=== PATIENT | female | born 1970 | race Caucasian/White ===

== ENCOUNTER 2017-03-01 05:07 | Inpatient (IN) ==
[2017-02-27 16:05] LABS: ALT/SGPT 16 U/l (0-40); Albumin 4.5 gm/dL (3.2-5.2); Albumin/Globulin Ratio 1.7 (1.0-2.3); Alkaline Phosphatase 60 U/L (39-117); Blood Urea Nitrogen 11 mg/dl (6-20)
[2017-02-27 16:09] LABS: HCG,Serum NEGATIVE <10 (<10 mIU/ml)
[2017-02-27 16:17] LABS: Basophils # (Auto) 0.1 K/mcL (0.0-0.3); Basophils % (Auto) 0.6 % (0.0-2.0); Eosinophils # (Auto) 0.2 K/mcL (0.0-0.7); Eosinophils % (Auto) 2.3 % (0.0-7.0); Granulocytes % (Auto) 60.9 % (38.0-78.0); Lymphocytes # (Auto) 2.5 K/mcL (1.5-4.8); Lymphocytes % (Auto) 28.7 % (15.5-49.0); Mean Cell Volume 92.6 fL (80.0-100.0); Mean Corpuscular HGB Conc 33.8 g/dL (31.0-36.0); Mean Corpuscular Hemoglobin 31.3 pg (26.0-34.0); Monocytes # (Auto) 0.7 K/mcL (0.1-0.9); Monocytes % (Auto) 7.5 % (1.0-12.0); Platelet Count 412 K/mcL (140-440); RBC 4.02 M/mcL (4.00-5.20); Red Cell Distribution Width 13.8 % (11.5-14.5)
--- NOTE | 2017-02-28 01:12 | History and Physical Report ---
DATE OF ADMISSION: 03/01/2017 HISTORY: This is a 46-year-old white female 4, para 3-0-1-3, last menstrual period 02/17/2017, who presents for abdominal hysterectomy and bilateral salpingectomy because of ongoing problems with dysmenorrhea, bleeding and symptomatic uterine fibroids. The patient continues to have symptoms of pelvic pressure and incomplete emptying of her bladder. Ultrasound suggests multiple fibroids, the largest of which measures 7 cm. Additionally, she has recently had a urinary tract infection and is currently being treated on the tail end of course for an abscessed tooth with penicillin. GYNECOLOGIC HISTORY: She has had three babies born vaginally. She has previously had a tubal ligation. She has no history of abnormal Pap smears. ADDITIONAL PAST SURGICAL HISTORY: Achilles tendon repair and a D and C. Recent colonoscopy related to rectal bleeding, on which an ulcerated area in the colon was identified, also colon polyp, and she had a skin tag removed at the time of that procedure. PAST MEDICAL HISTORY: Includes migraine headaches as well as chlamydia treated many years ago. Her medical history also includes anxiety. SOCIAL HISTORY: She is single. She works for [employer]. She is an ex-smoker. MEDICATIONS: Penicillin, as mentioned. MiraLAX. Prilosec. Xanax as needed. Hydrocodone, related to her tooth pain. ALLERGIES: She reports NO KNOWN DRUG ALLERGIES. PHYSICAL EXAMINATION: GENERAL: She is a well-developed, well-nourished female in no acute distress. HEENT: Grossly normocephalic. VITAL SIGNS: Blood pressure is 120/58. Weight is 182 pounds. BMI is 27. LUNGS: Clear. HEART: Regular rate and rhythm. ABDOMEN: Soft, nontender. No appreciable organomegaly. PELVIC: External genitalia without obvious lesion. She still has a small hemorrhoidal tag visible. Vault is without lesion and without obvious cystocele or rectocele. Cervix is bulbous and the uterus is irregularly contoured with a large fibroid anteriorly and seemingly compressing over the bladder. Uterus is approximately 10 weeks gestational size. Adnexa not palpable, separate from the uterus. ASSESSMENT: Symptomatic large uterus with multiple fibroids. PLAN: Proceed with abdominal hysterectomy and bilateral salpingectomy for risk reduction purposes. The patient is opting to leave ovaries intact. Potential complications such as risk of the anesthetic, bleeding, infection and the risk of injury to nearby organs such as the bowel, bladder or blood vessel were reviewed. She would receive blood for life-saving purposes. SAB:mary Job ID: [id number] Doc ID: [id number] Cheyenne FORBES
[~2017-03-01 05:07] MED LIST: ceFAZolin 1 GM VIAL IV SCH
[2017-03-01] MEDS ORDERED: KETOROLAC 30 MG/ML VIAL IV ONE (07:55)
[2017-03-01] MEDS ORDERED: ONDANSETRON 4 MG/2 ML VIAL IV ONE (07:55)
[2017-03-01] MEDS ORDERED: HYDROmorphone 2 MG/ML SYRINGE IV ONE (07:55)
[2017-03-01] MEDS ORDERED: LIDOCAINE HCL/PF 100 MG/5 ML SYRINGE IV ONE (07:55)
[2017-03-01] MEDS ORDERED: ROPIVACAINE HCL/PF 20 ML VIAL IJ ONE (07:55)
[2017-03-01] MEDS ORDERED: MIDAZOLAM 2 MG/2 ML VIAL IV ONE (07:55)
[2017-03-01] MEDS ORDERED: HETASTARCH 6% 500 ML BAG IV ONE (07:55)
[2017-03-01] MEDS ORDERED: ROCURONIUM 10 MG/ML ML IV ONE (07:55)
[2017-03-01] MEDS ORDERED: NEOSTIGMINE 1 MG/ML VIAL IV ONE (07:55)
[2017-03-01] MEDS ORDERED: GLYCOPYRROLATE 0.2 MG/ML VIAL IV ONE (07:55)
[2017-03-01] MEDS ORDERED: DEXAMETHASONE 10 MG/ML VIAL IV ONE (07:55)
[2017-03-01] MEDS ORDERED: PROPOFOL 200 MG/20 ML VIAL IV ONE (07:55)
[2017-03-01] MEDS ORDERED: ONDANSETRON 4 MG/2 ML VIAL IV PRN (10:00)
[2017-03-01] MEDS ORDERED: ACETAMINOPHEN 1,000 MG/100 ML BOTTLE IV ONE (10:00)
[2017-03-01] MEDS ORDERED: FLUMAZENIL 0.1 MG/ML ML IV PRN (10:00)
[2017-03-01] MEDS ORDERED: diphenhydrAMINE 50 MG/ML VIAL IV PRN (10:00)
[2017-03-01] MEDS ORDERED: PROMETHAZINE 25 MG/ML VIAL IV PRN (10:00)
[2017-03-01] MEDS ORDERED: NALOXONE HCL 0.4 MG/ML VIAL IV PRN (10:00)
[2017-03-01] MEDS ORDERED: MEPERIDINE 25 MG/ML SYRINGE IV PRN (10:00)
[2017-03-01] MEDS ORDERED: LACTATED RINGERS 1,000 ML IV SCH (10:00)
[2017-03-01] MEDS ORDERED: LACTATED RINGERS 250 ML IV PRN (10:00)
[2017-03-01] MEDS ORDERED: IPRATROPIUM/ALBUTEROL 3 ML AMPUL.NEB NEB PRN (10:00)
[2017-03-01] MEDS ORDERED: BENZOCAINE/MENTHOL 1 LOZENGE PO PRN (10:00)
[2017-03-01] MEDS: HYDROmorphone 2 MG/ML SYRINGE IV PRN ×4 (11:00→11:22)
--- NOTE | 2017-03-01 11:02 | Brief Operative Note ---
Date of procedure: 03/01/17 Pre-op diagnosis: Dysmenorrhea, uterine fibroids Post-op diagnosis: same Procedure: total abdominal hysterectomy bilateral salpingectomy Anesthesia: GETA (Andrew Cowart and TAPS placed), other Findings: Enlarged, multiple fibroid uterus, normal appearing ovaries, s/p previous tubal ligation, normal appearing appendix Complications: none Surgeon: Cheyenne Chilel [employer] Manager: Jan Anguiano Estimated blood loss (cc): 750 Specimens Removed/Pathology: (uterus and bilateral tubes) Condition: stable Disposition: PACU
[2017-03-01] MEDS: fentaNYL 100 MCG/2 ML VIAL IV PRN ×4 (11:20→11:40)
[2017-03-01] MEDS ORDERED: ZOLPIDEM 5 MG TABLET PO PRN (11:23)
[2017-03-01] MEDS ORDERED: MAGNESIUM HYDROXIDE 30 ML ORAL.SUSP PO PRN (11:23)
[2017-03-01] MEDS ORDERED: ACETAMINOPHEN 325 MG TABLET PO PRN (11:23)
[2017-03-01] MEDS ORDERED: MAG HYDROX/AL HYDROX/SIMETH 30 ML ORAL.SUSP PO PRN (11:23)
[2017-03-01] MEDS ORDERED: IBUPROFEN 600 MG TABLET PO PRN (11:23)
[2017-03-01] MEDS ORDERED: BISACODYL 10 MG SUPP.RECT PR PRN (11:23)
--- NOTE | 2017-03-01 12:29 | Operative Note ---
DATE OF OPERATION: 03/01/2017 PREOPERATIVE DIAGNOSES: 1. Symptomatic uterine fibroids. 2. Dysmenorrhea. POSTOPERATIVE DIAGNOSES: 1. Symptomatic uterine fibroids. 2. Dysmenorrhea. PROCEDURE: Total abdominal hysterectomy and bilateral risk reduction salpingectomy. FINDINGS: Multiple large uterine fibroids with the largest fibroid being subserosal and off the fundus. Normal appearance to the ovaries bilaterally. Previous tubal ligation changes. Normal appearance to the appendix. SURGEON: Cheyenne Chilel M.D. CLOTH CLASSER: Jan Anguiano M.D. DESCRIPTION: The patient taken to the operating room and placed under general endotracheal anesthesia by Andrew Cowart CRNA. Following this induction of anesthesia, he placed a TAP bilaterally for postoperative pain control. She was then prepped and draped in the usual sterile fashion for abdominal surgery. Using a scalpel, a Pfannenstiel incision was made, and this incision was carried down through the layers of subcutaneous fat and rectus sheath with sharp and cautery dissection. Bellies of the rectus muscle from the midline, and the parietoperitoneum was elevated superiorly, and the peritoneal cavity was entered sharply. This incision extended cranially and caudally with sharp dissection. A self-retaining Juan retractor was next placed. The patient was placed in a Trendelenburg position and bowel was packed out of the operative field. A tenaculum was used to grasp the large subserosal fibroid for traction. Beginning on the patient's left side, the round ligament was doubly clamped, cut, and suture ligated. The clamp was next placed across the suspensory ligament of the ovary and tube. This was suture ligated. The broad ligament was dissected downward and carried across the anterior surface of the cervix. The posterior leaf of the broad ligament similarly was dissected. The uterine vasculature was next clamped, cut, and suture ligated. The same procedure carried out on the opposite side. Additionally, the subserosal fibroid was cross clamped across its pedicle, excised, and passed off the operative field to allow for better visualization. The pedicle from this was suture ligated. The dissection was carried down to the level of the upper portions of the cardinal ligaments. Again, visualization was hampered related to the bulk of the uterus, and therefore at the level of the internal os, the top portion of the uterus was amputated from the cervix. This was passed off the operative field. Dissection down along the sides of the lower portion of the cardinal ligaments were continued. The right uterosacral ligament was clamped separately. These pedicles were suture ligated with 0 Vicryl. The vagina was entered in the left lateral corner, and the cervix was then excised in a circumferential manner staying close to the margin of the cervicovaginal junction. Modified Vidal sutures were placed in each vaginal angle. Each vaginal angle also then suspended to ipsilateral round ligament for future vaginal support. Vaginal cuff was reapproximated in a running locked stitch of 0 Vicryl. Areas of oozing were either cauterized or suture ligated with 3-0 chromic. The visceral peritoneum was next reapproximated with 3-0 chromic. Pelvis was copiously irrigated. Hemostasis appeared satisfactory. Lap packs and retractor were removed. The parietoperitoneum was reapproximated with a running stitch of 0 Vicryl. Fascia closed in halves with #1 Vicryl in a running locked fashion. Subcutaneous reapproximated with interrupteds of 3-0 Biosyn. The skin was closed with a subcuticular of 3-0 Biosyn. Estimated blood loss was 750 mL. Sponge, needle, and instrument counts correct. The patient was transported to the recovery room in satisfactory condition. Guevara was draining clear urine. SAB:alfa Job ID: [id number] Doc ID: [id number] Cheyenne Chilel MD
[2017-03-01 13:00] LABS: Basophils # (Auto) 0.1 K/mcL (0.0-0.3); Basophils % (Auto) 0.3 % (0.0-2.0); Eosinophils # (Auto) 0.2 K/mcL (0.0-0.7); Eosinophils % (Auto) 0.8 % (0.0-7.0); Granulocytes % (Auto) 95.6 % (38.0-78.0); Lymphocytes # (Auto) 0.8 K/mcL (1.5-4.8); Lymphocytes % (Auto) 2.9 % (15.5-49.0); Mean Cell Volume 92.5 fL (80.0-100.0); Mean Corpuscular HGB Conc 33.7 g/dL (31.0-36.0); Mean Corpuscular Hemoglobin 31.1 pg (26.0-34.0); Monocytes # (Auto) 0.1 K/mcL (0.1-0.9); Monocytes % (Auto) 0.4 % (1.0-12.0); Platelet Count 385 K/mcL (140-440); RBC 3.64 M/mcL (4.00-5.20); Red Cell Distribution Width 13.8 % (11.5-14.5)
[2017-03-01] MEDS: KETOROLAC 30 MG/ML VIAL IV PRN ×2 (13:45→20:40)
[2017-03-01] MEDS: HYDROCODONE/APAP 7.5/325MG TABLET PO PRN ×5 (13:45→22:45)
[2017-03-01] MEDS: 0.9 % SODIUM CHLORIDE 10 ML SYRINGE IV SCH ×2 (14:39→21:59)
[2017-03-01] MEDS: DEXTROSE 5%-LR 1,000 ML IV SCH ×3 (14:39→22:40)
[2017-03-01] MEDS: DOCUSATE SODIUM 100 MG CAPSULE PO SCH (20:40)
[2017-03-02] MEDS: HYDROCODONE/APAP 7.5/325MG TABLET PO PRN ×6 (04:08→14:50)
[2017-03-02] MEDS: KETOROLAC 30 MG/ML VIAL IV PRN (04:09)
[2017-03-02] MEDS: 0.9 % SODIUM CHLORIDE 10 ML SYRINGE IV SCH ×2 (06:02→17:17)
[2017-03-02] MEDS: DEXTROSE 5%-LR 1,000 ML IV SCH ×2 (06:04→11:33)
[2017-03-02] MEDS ORDERED: IPRATROPIUM/ALBUTEROL 3 ML AMPUL.NEB NEB PRN (08:07)
[2017-03-02] MEDS: DOCUSATE SODIUM 100 MG CAPSULE PO SCH (08:08)
--- NOTE | 2017-03-02 08:10 | OB/GYN Progress Note ---
Assessment and Plan (1) S/P total abdominal hysterectomy Status: Acute Comment: Doing well. Will plan respiratory treatment. Increase activity. DC Guevara. Fe supplement when once bowel functioning recovers. Possibly home later today if pain controlled with orals and continues to do well. 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 Chief Complaint: [] Feeling well with pain controlled with toradol and Hydrocodone. No flatus yet but has been hungry and has been tolerating diet. Would like catheter out. Has been up without dizziness. Findings reviewed. Principal diagnosis: s/p JASMIN Objective - Vital Signs Latest vital signs: Vital Signs Temp Pulse Pulse Resp BP BP Pulse Ox 03/02/17 07:57 97.9 F 18 103/61 97 03/02/17 04:00 98.2 F 103 H 18 110/68 95 03/02/17 00:15 98.8 F 107 H 18 119/63 96 03/01/17 20:00 98.4 F 114 H 14 126/69 96 03/01/17 17:07 16 95 03/01/17 16:50 80 18 113/68 97 03/01/17 16:00 98.3 F 90 18 138/86 98 03/01/17 13:40 97.4 F 101 H 16 155/90 98 03/01/17 13:27 85 18 131/72 98 03/01/17 13:12 86 18 123/71 97 03/01/17 13:10 86 16 123/71 97 03/01/17 12:57 87 18 118/67 97 03/01/17 12:42 87 18 134/85 97 03/01/17 12:40 87 16 134/85 97 03/01/17 12:27 80 18 125/83 97 03/01/17 12:25 80 16 125/83 97 03/01/17 12:12 84 18 125/77 95 03/01/17 12:10 84 16 125/77 95 03/01/17 11:58 98.2 F 87 18 125/78 96 03/01/17 11:55 97.1 F 87 16 100/87 95 03/01/17 11:37 97.9 F 99 H 15 129/78 97 03/01/17 11:24 95 H 14 127/79 95 03/01/17 11:16 104 H 14 156/81 96 03/01/17 11:11 102 H 14 129/80 97 03/01/17 11:03 95 H 15 110/69 98 03/01/17 10:57 97.5 F 107 H 107 H 13 106/69 99 Intake and Output 03/01/17 03/02/17 03/02/17 21:59 05:59 13:59 Intake Total 400 / 400 2900 / 2900 925 / 925 Output Total 450 / 450 2500 / 2500 Balance -50 / -50 400 / 400 925 / 925 Intake: IV 1000 / 1000 925 / 925 Dextrose 5%-Lactated Ringers 1, 1000 / 1000 925 / 925 000 ml @ 125 mls/hr IV .Q8H [facility] Rx#:[id number] Oral 400 / 400 1900 / 1900 Output: Urine Catheter Amount 450 / 450 2500 / 2500 Other: Percent of Meal Consumed 75% Feeding Ability Independent Weight 186 lb - Exam Lungs: bilateral: wheezes Abdomen: Present: normal appearance, soft Bowel sounds: Present: Hypoactive Incision OB: Present: normal, intact, dressed - Labs Labs: Abnormal lab results 03/01/17 Range/Units 12:19 WBC 26.5 H (4.5-11.0) K/mcL RBC 3.64 L (4.00-5.20) M/mcL Hgb 11.3 L (12.0-15.0) g/dL Hct 33.6 L (36.0-48.0) % MPV 7.3 L (7.4-10.4) fL Gran % 95.6 H (38.0-78.0) % Lymph % (Auto) 2.9 L (15.5-49.0) % [place] % (Auto) 0.4 L (1.0-12.0) % Gran # 25.4 H (1.8-8.0) K/mcL Lymph # (Auto) 0.8 L (1.5-4.8) K/mcL
[2017-03-02] MEDS ORDERED: IBUPROFEN 600 MG TABLET PO PRN (08:25)
--- NOTE | 2017-03-02 13:24 | Surgical Pathology Report ---
HISTOLOGY SPECIMEN MICROSCOPIC DIAGNOSIS UTERUS, CERVIX AND BILATERAL FALLOPIAN TUBES, HYSTERECTOMY WITH BILATERAL SALPINGECTOMY: -- CERVIX: - NO DIAGNOSTIC ALTERATIONS. - NO DYSPLASIA OR MALIGNANCY IDENTIFIED. -- ENDOMETRIUM: - LATE PROLIFERATIVE/EARLY SECRETORY ENDOMETRIUM. - NO HYPERPLASIA OR MALIGNANCY IDENTIFIED. -- MYOMETRIUM: - LEIOMYOMATA. -- FALLOPIAN TUBES, BILATERAL: - PARATUBAL CYSTS. (DMT:adj) CLINICAL HISTORY Dysmenorrhea. PROCEDURAL IMPRESSION Uterine fibroids. GROSS DESCRIPTION Received in formalin labeled uterus, cervix, bilateral fallopian tubes, is a disrupted hysterectomy specimen that consists of three pieces. They are 394 grams in aggregate. The three pieces consist of two pieces of uterus and one firm stevenson nodule. The smallest piece of uterus contains cervix and is 5.2 x 4.9 x 2.4 cm. The second fragment of uterus is 7 x 5.6 x 6.6 cm. The serosa is menezes-pink. There are multiple subserosal nodules from 0.2 to 4.5 cm in greatest dimension. cm in greatest dimension. The cervix is pink-menezes. The external cervical os is up to 1.5 cm. It is "S" shaped. Orientation cannot be determined. There are multiple firm stevenson-menezes nodules throughout the myometrium, including the ones corresponding to the subserosal nodules and range in size from less than 0.1 to 2.6 cm in greatest dimension. Cut surfaces are firm, menezes and whorled. Possible endometrium is pink-menezes and up to 0.2 cm. Attached myometrium is striated and up to 4.5 cm thick. The separate nodule of tissue is 7.2 x 6.8 x 4.8 cm. Cut surfaces are firm, menezes and whorled. Also in the container are two segments of fallopian tube with fimbriated ends that consist of purple tubal segments of tissue with pinpoint lumens. The first is 4.5 cm in length by up to 0.7 cm in diameter, and has two small cavities that are 0.2 and 0.6 cm. The largest is at the fimbriated end. The external surface is inked blue. The second segment of fallopian tube is 5.2 cm in length and up to 0.9 cm in diameter. Sectioning shows menezes tissue adjacent to the tube. The external surface is inked blue. Supply Requirements Officer sections submitted in ten cassettes: A1 - cervix; A2 - full cross section from one side of uterus; A3 - additional segment from same side showing possible endometrium; A3 - full cross section, halved from opposite side of uterus; A5 - additional section from corresponding side showing possible endometrium; A6 - random sections of firm stevenson nodules; A7-A8 - field representative/health education sections of separate nodule; A9-A10 - field representative/health education sections from fallopian tubes. (SCB:sln) Electronically Signed by: Mack Art M.D.
== END 2017-03-02 17:20 | disposition home or self-care (01) | DRG 743 ==
LOC: MEDSUR 05:07 → EDSTATUS 07:30
PROVIDERS: ADMIT Obstetrics & Gynecology; ATTEND Obstetrics & Gynecology